=== PATIENT | female | born 1995 | race Caucasian/White ===

== ENCOUNTER 2019-03-27 17:26 | Inpatient (IN) | payer SELFPAY ==
[2019-03-27] MEDS ORDERED: LACTATED RINGERS 500 ML IV ONE (18:44)
[2019-03-27] MEDS ORDERED: LACTATED RINGERS 1,000 ML IV ONE (19:22)
[2019-03-27] MEDS ORDERED: REGLAN IV SCH (19:59)
[2019-03-27] MEDS ORDERED: PEPCID IV SCH (19:59)
[2019-03-27] MEDS ORDERED: BICITRA PO SCH (19:59)
[2019-03-27] MEDS ORDERED: ANCEF/STERILE WATER 2 GM/20 ML 2 GM/20 ML SYRINGE IV NR (20:00)
[2019-03-27] MEDS ORDERED: PITOCin/NS 20 UNIT/1000ML DRIP 20 UNITS/1,000 ML BAG IV SCH ×2 (20:00→23:00)
[2019-03-27] MEDS ORDERED: LACTATED RINGERS 1,000 ML IV SCH (20:00)
[2019-03-27 20:46] LABS: Eosinophils % (Auto) 0.6 % (0.0-4.3); Monocytes # (Auto) 0.5 K/mm3 (0.0-0.8); Monocytes % (Auto) 6.2 % (0.0-7.3)
[2019-03-27 20:48] LABS: Hematocrit 30.8 % (30.3-42.9); Hemoglobin 9.7 gm/dl (10.1-14.3); Mean Corpuscular Volume 63 fl (79-97); Red Blood Count 4.91 M/mm3 (3.65-5.03)
[2019-03-27 20:49] LABS: Basophils % (Auto) 0.5 % (0.0-1.8); Lymphocytes # (Auto) 1.9 K/mm3 (1.2-5.4); Lymphocytes % (Auto) 24.6 % (13.4-35.0); Mean Corpuscular HGB Conc 32 % (30-34); Platelet Count 283 K/mm3 (140-440); Red Cell Distribution Width 18.3 % (13.2-15.2)
[2019-03-27] MEDS ORDERED: ZOFRAN ONE (21:25)
[2019-03-27] MEDS ORDERED: SUBLIMAZE ONE (21:25)
--- NOTE | 2019-03-27 21:26 | History and Physical Report ---
History of Present Illness Date of examination: 03/27/19 Chief complaint: Nonreactive NST in the office History of present illness: Patient is a 23-year-old AF EDC 04/16/2019; EGA 37-1/7 weeks, sent from the office due to a nonreactive NST in the office. NST also nonreactive in the hosp ital with late decelerations. BPP 01/23 She received late care at [facility] [employer] and course has been unremarkable except for anemia. records are available and GBS is negative Past History Past Medical History: no pertinent history Past Surgical History: no surgical history Family/Genetic History: none Social history: no significant social history, - Obstetrical History Expected Date of Delivery: 04/16/19 Actual Gestation: 37 Week(s) 1 Day(s) : 2 Medications and Allergies Allergies Allergy/AdvReac Type Severity Reaction Status Date / Time No Known Allergies Allergy Verified 10/18/18 20:32 Home Medications Medication Instructions Recorded Confirmed Last Taken Type Ferrous Sulfate [Feosol 325 MG tab] 325 mg PO BID #60 tablet 04/24/15 11/09/15 Unknown Rx Pnv,Calcium 72/Iron/Folic Acid 1 each PO DAILY #30 tablet 04/24/15 11/09/15 Unknown Rx [ Plus Tablet] Ibuprofen [Motrin 800 MG tab] 800 mg PO Q8HR PRN #30 tablet 11/09/15 Unknown Rx oxyCODONE /ACETAMINOPHEN [Percocet 2 tab PO Q6HR PRN #30 tablet 11/09/15 Unknown Rx 5/325] Active Meds: Active Medications Citric Acid/Sodium Citrate (Bicitra) 30 ml PO ONCE KRISSY Stop: 03/28/19 19:58 Famotidine (Pepcid) 20 mg IV ONCE KRISSY Stop: 03/28/19 19:58 Oxytocin/Sodium Chloride (Pitocin/Ns 20 Unit/1000ml Drip) 20 units in 1,000 mls @ 0 mls/hr IV TITR KRISSY Lactated Ringer's (Lactated Ringers) 1,000 mls @ 2,250 mls/hr IV PREOP KRISSY Stop: 03/28/19 20:27 Cefazolin Sodium (Ancef/Sterile Water 2 Gm/20 Ml) 2 gm in 20 mls @ 80 mls/hr IV PREOP NR; Protocol Stop: 03/28/19 19:59 Metoclopramide HCl (Reglan) 10 mg IV ONCE KRISSY Stop: 03/28/19 19:58 Review of Systems All systems: negative - Vital Signs Vital signs: Vital Signs Temp Pulse Resp BP Pulse Ox 97.8 F 82 20 108/70 97 03/27/19 17:48 03/27/19 17:48 03/27/19 17:48 03/27/19 17:48 03/27/19 17:48 Temp Pulse Resp BP Pulse Ox 97.8 F 88 20 108/70 100 03/27/19 17:48 03/27/19 20:14 03/27/19 17:48 03/27/19 17:48 03/27/19 20:14 - Physical Exam Breasts: Positive: deferred Cardiovascular: Regular rate Abdomen: Positive: normal appearance, soft Genitourinary (Female): Positive: normal external genitalia Uterus: Positive: enlarged Extremities: Positive: normal - Obstetrical FHR: category 2 Uterine Contraction Monitor Mode: External Uterine Contraction Pattern: Irregular Results Result Diagrams: 03/27/19 19:30 Abnormal lab results 03/27/19 Range/Units 19:30 Hgb 9.7 L (10.1-14.3) gm/dl MCV 63 L (79-97) fl MCH 20 L (28-32) pg RDW 18.3 H (13.2-15.2) % All other labs normal. Ultrasound: report reviewed (BPP 01/23) Assessment and Plan - Patient Problems (1) 37 weeks gestation of Onset Date: 03/27/19 Current Visit: Yes Status: Acute Plan to address problem: A: IUP @ 37 1/7 weeks Non-reassuring monitoring with late decelerations P: Will admit and proceed with C Section delivery DESTINY (2) Non-reassuring heart rate with late deceleration Onset Date: 03/27/19 Current Visit: Yes Status: Acute
[2019-03-27] MEDS ORDERED: NEO SYNEPHRINE/NS Syringe(OR USE) IV ONE (21:27)
[2019-03-27] MEDS ORDERED: PHENERGAN PO PRN (21:32)
[2019-03-27] MEDS ORDERED: PHENERGAN PR PRN (21:32)
[2019-03-27] MEDS ORDERED: ZOFRAN IV PRN (21:32)
[2019-03-27] MEDS ORDERED: BENADRYL IV PRN (21:32)
[2019-03-27] MEDS ORDERED: DILAUDID IV PRN (21:32)
[2019-03-27] MEDS ORDERED: NARCAN 0.4 MG/1 ML IV PRN ×2 (21:32→22:44)
--- NOTE | 2019-03-27 21:34 | Anesthesia Consultation ---
Anesthesia Consult and Med Hx - Airway Anesthetic Teeth Evaluation: Good ROM Head & Neck: Adequate Mental/Hyoid Distance: Adequate Mallampati Class: Class I Intubation Access Assessment: Good - Pulmonary Exam CTA: Yes - Cardiac Exam Cardiac Exam: RRR - Pre-Operative Health Status ASA Pre-Surgery Classification: ASA2 Proposed Anesthetic Plan: Spinal - Pulmonary Hx Asthma: No COPD: No Hx Pneumonia: No - Cardiovascular System Hx Hypertension: No - Central Nervous System Hx Seizures: No Hx Psychiatric Problems: No - Endocrine Hx Renal Disease: No Hx End Stage Renal Disease: No Hx Hypothyroidism: No Hx Hyperthyroidism: No - Hematic Hx Anemia: No Hx Sickle Cell Disease: No - Other Systems Hx Alcohol Use: No
--- NOTE | 2019-03-27 21:34 | Anesthesia Day of Surgery ---
Anesthesia Day of Surgery - Day of Surgery Patient Examined: Yes Patient H&P Reviewed: Yes Patient is NPO: Yes Beta Blockers: No Cardiac Clearance: No Pulmonary Clearance: No Spenser's Test: N/A
[2019-03-27] MEDS ORDERED: SODIUM CHLORIDE FLUSH SYRINGE 10 ML IV PRN ×2 (22:00→23:00)
--- NOTE | 2019-03-27 22:04 | Ultrasound Report ---
PROCEDURE: Ultrasound biophysical profile without nonstress test. TECHNIQUE: Sonographic evaluation for breathing, movement, tone, and amniotic flui d volume was performed. HISTORY: decreased fm COMPARISONS: None. FINDINGS: FETUS Amniotic fluid volume 0. breathin. movement: 0. tone: 0. Score: 2 of 8. IMPRESSION: Very low biophysical profile. This document is electronically signed by Elias Nina MD., March 27 2019 10:02:46 PM ET
--- NOTE | 2019-03-27 22:08 | Ultrasound Report ---
PROCEDURE: Limited obstetrical ultrasound. TECHNIQUE: Real-time limited sonographic examination was performed for evaluation of each fetus with image documentation (1 or more fetuses). HISTORY: decreased fm COMPARISONS: Obstetrical ultrasound 10/18/2018. Dictation not available. FINDINGS: There is a single viable fetus in cephalic presentation. Cardiac activity is documented at 145 bpm. T he amniotic fluid volume appears decreased. The amniotic fluid index measures 3.6 cm. IMPRESSION: Oligohydramnios. Viable fetus in cephalic presentation. This document is electronically signed by Elias Nina MD., March 27 2019 10:07:04 PM ET
[2019-03-27] MEDS ORDERED: LACTATED RINGERS 1,000 ML ONE (22:10)
[2019-03-27] MEDS ORDERED: TORADOL ONE (22:15)
[2019-03-27] MEDS ORDERED: TUCKS PAD TP PRN (22:44)
[2019-03-27] MEDS ORDERED: SENOKOT PO PRN (22:44)
[2019-03-27] MEDS ORDERED: TORADOL IV PRN (22:44)
[2019-03-27] MEDS ORDERED: MILK OF MAGNESIA PO PRN (22:44)
[2019-03-27] MEDS ORDERED: TYLENOL PO PRN (22:44)
[2019-03-27] MEDS ORDERED: NORCO 5/325 PO PRN (22:44)
[2019-03-27] MEDS ORDERED: LANSINOH TP PRN (22:44)
--- NOTE | 2019-03-27 22:44 | Operative Report ---
Operative Report Operative Report: Date of procedure: 03/27/2019 Pre-operative diagnosis: 1. Intrauterine at 37-1/7 weeks 2. Non-re assuring surveillance Post-operative diagnosis: Same Procedure name(s): Primary low transverse section Surgeon: Richard Lee MD Grocery Associate: None Anesthesia: Spinal anesthesia by Sheldon Lee CRNA EBL: 350 mL Findings: A 2703 g male infant Apgars 7 at 1 minute 8 at 5 minutes. Tight nuchal cord 1. Normal uterus. Normal tubes and ovaries bilaterally. Procedure: After the patient was prepped and draped in usual sterile fashion, and after satisfactory level of epidural anesthesia was obtained, the skin knife was used to make a transverse skin incision. The incision was excised down to layer of the fascia, which was nicked in the midline and extended laterally using the Bovie cautery. The rectus muscles were dissected off the rectus fascia both superiorly and inferiorly. The rectus bellies in the midline, and the peritoneum was entered under direct visualization. The peritoneal incision was extended superiorly and inferiorly. A bladder flap was created and the bladder blade was then placed. The uterus was scored in a curvilinear linear fashion, entered in the midline revealing clear amniotic fluid. The infant's head was delivered onto the surgical field, and the oropharynx and nasopharynx were bulb suctioned. The rest of the infant's body was delivered, cord was doubly clamped and cut and the was handed to the waiting respiratory team. The placenta was manually removed from the uterus, and the uterus removed from its normal anatomical position. After gentle uterine lavage, the incision was inspected and found to be without extensions. It was then closed in 2 layers using 0 Vicryl suture in a running interlocking fashion, the second layer imbricating the first. After good hemostasis was achieved, copious amounts or irrigation was performed, and the gutters were suctioned free of blood and blood clots. Tisseel sealant was sprayed across the uterine incision. The uterus was then returned to its normal anatomical posi tion, and after excellent hemostasis assured, the peritoneum was re-approximated using 3-0 Vicryl suture in a running interlocking fashion, and then the rectus muscles were re-approximated using 3-0 Vicryl suture in a [id number] configuration. The fascia was then re-approximated using 0 Vicryl suture in running interlocking fashion. The subcutaneous layer was made hemostatic using Bovie cautery, the Tisseel sealant was sprayed across the fascial incision and the skin edges re-approximated using 4-0 Vicryl suture in a sub-cuticular fashion. Patient tolerated the procedure well was transported to recovery in stable condition.
[2019-03-27] MEDS ORDERED: D5LR 1,000 ML IV SCH (23:00)
--- NOTE | 2019-03-27 23:08 | Post Anesthesia Evaluation ---
- Post Anesthesia Evaluation Patient Participated: Yes Airway Patent: Yes Stable Respiratory Function: Yes Nausea/Vomiting: No Temp > 96.8F: Yes Pain Manageable: Yes Adequeate Hydration: Yes Anesthesia Complications: No Block Receding Appropriately: Yes Patient on Ventilator: No
[2019-03-28] MEDS ORDERED: PITOCin/NS 20 UNIT/1000ML DRIP 20,000 MILLIUNITS/1,000 ML BAG IV ONE (01:33)
[2019-03-28] MEDS: PERCOCET 5/325 PO PRN ×4 (01:41→20:06)
[2019-03-28] MEDS ORDERED: METHERGINE IM ONE ×2 (02:02→02:03)
[2019-03-28] MEDS: ANCEF/NS 1 GM/50 ML 1 GM/50 ML BAG IV SCH ×2 (03:32→12:33)
[2019-03-28] MEDS: METHERGINE PO SCH ×3 (06:26→22:36)
[2019-03-28] MEDS: IBUPROFEN PO PRN ×3 (07:44→20:10)
[2019-03-28] MEDS ORDERED: FEOSOL PO SCH (10:00)
[2019-03-28] MEDS: PRENATAL VITAMIN PO SCH (10:09)
[2019-03-28 10:38] LABS: Hematocrit 20.3 % (30.3-42.9); Hemoglobin 6.3 gm/dl (10.1-14.3)
[2019-03-28] MEDS: MYLICON PO PRN ×2 (14:53→20:06)
--- NOTE | 2019-03-28 18:22 | Progress Note ---
Assessment and Plan A: POD#1 s/p Primary c/s Asymptomatic Anemia Pain well controlled Ambulating, eating and voiding without difficulty Stable P: Follow Routine Orders FeSO4 BID InFed 100mg IM x1 dose Abdominal Binder Repeat H/H in am Anticiapte discharge home in 24-48 hours Subjective - Subjective Date of service: 03/28/19 Principal diagnosis: POD#1 s/p Primary section Patient reports: appetite normal, voiding normally, pain well controlled, flatus, ambulating normally, no bowel movement Objective - Vital Signs Latest vital signs: Vital Signs Temp Pulse Resp BP Pulse Ox 03/28/19 16:04 97.6 F 82 18 102/67 99 03/28/19 12:36 98.1 F 102 H 18 108/64 100 03/28/19 08:09 98.2 F 76 18 128/77 99 03/28/19 04:30 99.1 F 79 18 121/71 97 03/28/19 03:56 18 03/28/19 02:41 18 03/28/19 01:41 18 03/27/19 20:14 88 100 03/27/19 20:09 86 100 03/27/19 20:04 94 H 100 03/27/19 19:59 95 H 100 03/27/19 19:54 96 H 100 03/27/19 19:49 93 H 100 03/27/19 19:44 78 100 03/27/19 19:39 73 100 03/27/19 19:34 76 100 03/27/19 19:29 70 100 03/27/19 19:24 70 100 03/27/19 19:19 77 99 03/27/19 19:14 73 99 03/27/19 19:00 87 100 03/27/19 18:56 78 89 03/27/19 18:55 74 99 03/27/19 18:51 83 93 03/27/19 18:49 83 98 03/27/19 18:45 79 91 03/27/19 18:44 80 95 03/27/19 18:39 80 99 03/27/19 18:34 75 100 03/27/19 18:24 80 93 03/27/19 18:23 80 96 Intake and Output 03/28/19 03/28/19 03/28/19 07:59 15:59 23:59 Intake Total 290 Output Total 900 500 900 Balance -610 -500 -900 Intake: IV 50 ANCEF/NS 1 GM/50 ML 1 gm 50 In 50 ml @ 100 mls/hr IV Q8H [facility] Rx#:[id number] Intake, Free Water 240 Output: Urine 900 500 900 Indwelling Catheter 900 Void 500 900 Other: Total, Output Amount 900 500 900 # Voids Void 1 1 Estimated Blood Loss 350 - Exam Breasts: Present: normal Cardiovascular: Present: Regular rate, Normal S1, Normal S2, No murmurs Lungs: Present: Clear to auscultation, Normal air movement Abdomen: Present: normal appearance, soft, tenderness (as expected post op), normal bowel sounds. Absent: distention Vulva: both: normal Uterus: Present: firm, fundal height at umbilicus Extremities: Present: normal Deep Tendon Reflex Grade: Normal +2 Incision: Present: normal, dry, intact, dressed (Pressure dressing CDI) - Labs Labs: Abnormal lab results 03/27/19 03/28/19 Range/Units 19:30 10:10 Hgb 9.7 L 6.3 L D (10.1-14.3) gm/dl Hct 20.3 L D (30.3-42.9) % MCV 63 L (79-97) fl MCH 20 L (28-32) pg RDW 18.3 H (13.2-15.2) %
[2019-03-28] MEDS ORDERED: INFED IM ONE (18:24)
[2019-03-28] MEDS ORDERED: M-M-R II VACCINE SUB-Q ONE (22:46)
[2019-03-29] MEDS: IBUPROFEN PO PRN ×3 (03:37→23:41)
[2019-03-29] MEDS: MYLICON PO PRN (03:37)
[2019-03-29] MEDS ORDERED: BOOSTRIX IM ONE (06:00)
[2019-03-29 06:13] LABS: Hematocrit 21.3 % (30.3-42.9); Hemoglobin 6.4 gm/dl (10.1-14.3)
[2019-03-29] MEDS: PERCOCET 5/325 PO PRN (07:09)
--- NOTE | 2019-03-29 09:50 | Progress Note ---
Assessment and Plan - Patient Problems (1) Status post delivery Current Visit: Yes Status: Acute Plan to address problem: Continue routine PP orders Anticipate d/c home in 24-48 hrs if H/H is stable and remains >6 (2) Anemia Current Visit: No Status: Acute Qualifiers: Anemia type: other cause Other causes of anemia: acute posthemorrhagic Qualified Code(s): D62 - Acute posthemorrhagic anemia Plan to address problem: Asymptomatic Continue daily po iron supplementation H/H in am Continue iron supplementation after d/c home (Rx on chart) Subjective - Subjective Date of service: 03/29/19 Principal diagnosis: POD#2 s/p Primary section Interval history: See admission H & P, operative report and PP progress notes Patient reports: appetite normal, voiding normally, pain well controlled (with medications), flatus, ambulating normally, no bowel movement : in NICU, other () Objective - Vital Signs Latest vital signs: Vital Signs Temp Pulse Resp BP BP Pulse Ox 03/29/19 07:59 97.2 F L 92 H 16 114/52 98 03/29/19 07:09 16 03/29/19 03:37 16 03/29/19 00:35 98.6 F 18 108/70 03/28/19 20:10 16 03/28/19 16:04 97.6 F 82 18 102/67 99 03/28/19 12:36 98.1 F 102 H 18 108/64 100 Intake and Output 03/28/19 03/29/19 03/29/19 23:59 07:59 15:59 Intake Total 500 1080 Output Total 900 Balance -400 1080 Intake: Oral 200 480 Intake, Free Water 300 600 Output: Urine 900 Void 900 Other: Total, Intake Amount 200 480 Total, Output Amount 900 # Voids Void 1 1 - Exam Breasts: Present: deferred Cardiovascular: Present: Regular rate Lungs: Present: Normal air movement Abdomen: Present: tenderness, normal bowel sounds Uterus: Present: fundal height below umbilicus (U-1) Extremities: Present: normal Deep Tendon Reflex Grade: Normal +2 Incision: Present: dressed (no shadow drainage or bleeding noted) - Labs Labs: Abnormal lab results 03/28/19 03/29/19 Range/Units 10:10 05:36 Hgb 6.3 L D 6.4 L (10.1-14.3) gm/dl Hct 20.3 L D 21.3 L (30.3-42.9) %
[2019-03-29] MEDS: PRENATAL VITAMIN PO SCH (10:49)
[2019-03-29] MEDS: FEOSOL PO SCH ×3 (10:49→21:20)
[2019-03-29] MEDS ORDERED: FEOSOL PO SCH (14:00)
[2019-03-30] MEDS: PERCOCET 5/325 PO PRN (01:23)
[2019-03-30 06:11] LABS: Hematocrit 18.1 % (30.3-42.9); Hemoglobin 5.5 gm/dl (10.1-14.3)
[2019-03-30] MEDS ORDERED: NACL 0.9% 500 ML 500 ML IV ONE (06:23)
[2019-03-30] MEDS ORDERED: BENADRYL PO ONE (07:02)
[2019-03-30] MEDS ORDERED: TYLENOL PO ONE (07:05)
--- NOTE | 2019-03-30 09:38 | Progress Note ---
Assessment and Plan A: day 3 S/P primary section. Severe anemia secondary to blood loss. Patient declined blood transfusion. P: Discussed with patient risks of severe anemia and of not taking blood transfusion; patient states she understands the risks fully and does not want to receive blood transfusion. notified of patient's refusal of blood. Advised pt. she must take iron supplment TID even when she goes home and she must increase her intake of iron rich foods (list of such foods provided to pt.). Warning signs discussed with pt. Subjective - Subjective Date of service: 03/30/19 Principal diagnosis: POD#3 s/p Primary section Interval history: /postop day 3 S/P primary section. Patient has severe anemia; blood transfusion has been ordered by . Patient has declined blood transfusion. [employer]st had long conversation with patient re: risks of severe anemia; patient states she understands the risks of not taking the blood. Patient refuses blood transfusion. Patient states she is feeling well. She reports scant amount of lochia and no clots. Voiding without difficulty; ambulating well. Tolerating a regular diet without nausea or vomiting. Patient denies headache, chest pain, cough, shortness of breath, dizziness, abdominal pain, leg pain, fatigue, or any other symptoms. Patient reports: appetite normal, voiding normally, pain well controlled, flatus, ambulating normally, no dizzy ambulation, no nauseated [place]: doing well, in NICU Objective - Vital Signs Latest vital signs: Vital Signs Temp Pulse Resp BP Pulse Ox 03/30/19 08:11 98.4 F 86 20 109/60 100 03/30/19 00:37 98.2 F 107 H 18 116/54 99 03/29/19 17:26 99.7 F H 108 H 20 108/68 97 03/29/19 10:49 16 Intake and Output 03/29/19 03/30/19 03/30/19 23:59 07:59 15:59 Intake Total 240 240 Balance 240 240 Intake: Oral 240 240 Other: Total, Intake Amount 240 240 # Voids Void 1 1 # Bowel Movements 1 - Exam Cardiovascular: Present: Regular rate, Normal S1, Normal S2, No murmurs Lungs: Present: Clear to auscultation Abdomen: Present: normal appearance, soft, normal bowel sounds. Absent: distention, tenderness, guarding, rigidity Uterus: Present: normal, firm, fundal height below umbilicus. Absent: bogginess, tenderness Extremities: Present: normal. Absent: tenderness, edema Incision: Present: normal, dry, intact - Labs Labs: Abnormal lab results 03/27/19 03/30/19 Range/Units 19:30 05:52 Hgb 5.5 L* (10.1-14.3) gm/dl Hct 18.1 L* (30.3-42.9) % Crossmatch See Detail
--- NOTE | 2019-03-30 10:02 | Event Note ---
Date: 03/30/19 Patient refused the 3 units of PRBCs ordered by Dr. Raymond. Patient is able to stand up and walk around without difficulty. She denies dizziness or fatigue. She denies chest pain or shortness of breath. Spoke with Dr. Raymond re: patient's refusal of blood transfusion. Dr. Raymond states that patient must remain in the hospital for the next week and to limit blood draws. Patient has been informed of risks of refusing blood and patient states she fully understands and accepts these risks. She was informed that she will not be discharged yet.
[2019-03-30] MEDS: FEOSOL PO SCH ×3 (10:36→22:35)
[2019-03-30] MEDS: IBUPROFEN PO PRN ×2 (10:37→19:02)
[2019-03-30] MEDS: PRENATAL VITAMIN PO SCH (10:37)
--- NOTE | 2019-03-30 18:54 | Event Note ---
Date: 03/30/19 SCDs ordered as patient is to rest and stay in her room (not ambulate in halls); patient to rest per MD order. Nurses and patient notified.
[2019-03-31] MEDS: FEOSOL PO SCH ×3 (09:08→21:00)
[2019-03-31] MEDS: PRENATAL VITAMIN PO SCH (09:08)
[2019-03-31] MEDS: IBUPROFEN PO PRN (09:08)
--- NOTE | 2019-03-31 11:25 | Progress Note ---
Assessment and Plan A: /postop day 4 S/P primary section. Anemia secondary to and blood loss. Patient refused blood transfusion. P: Continue rest and SCDs. Continue iron supplementation TID. Iron rich diet. Subjective - Subjective Date of service: 03/31/19 Principal diagnosis: POD#4 s/p Primary section; severe anemia Interval history: /postop day 4 S/P primary section. Patient has severe anemia; she has refused blood transfusion that was ordered by MD. Patient states she is feeling well. She denies dizziness, fatigue, chest pain, shortness of breath, cough, leg pain, abdominal pain, nausea or vomiting, or heavy vaginal bleeding. She reports scant lochia. Baby is in NICU and patient is bottlefeeding and pumping breast milk. Patient has been resting in bed; SCD in place on both LE. She has been advised to rest due to the severe anemia. She is receiving iron supplementation TID. Patient is voiding without difficulty and tolerating a regular diet. Patient states she has increased her dietary intake of iron rich foods. Patient reports: appetite normal, voiding normally, pain well controlled, flatus, no dizzy ambulation, no nauseated [place]: doing well, in NICU Objective - Vital Signs Latest vital signs: Vital Signs Temp Pulse Resp BP Pulse Ox 03/31/19 08:01 98.2 F 89 20 110/71 99 03/31/19 00:21 98.4 F 105 H 18 106/66 98 03/30/19 16:11 97.4 F L 88 20 101/65 99 Intake and Output 03/30/19 03/31/19 03/31/19 23:59 07:59 15:59 Intake Total 480 120 360 Balance 480 120 360 Intake: Oral 480 120 360 Other: Total, Intake Amount 240 120 360 # Voids Void 1 1 1 - Exam Cardiovascular: Present: Regular rate, Normal S1, Normal S2 Lungs: Present: Clear to auscultation Abdomen: Present: normal appearance, soft, normal bowel sounds. Absent: distention, tenderness, guarding, rigidity Uterus: Present: normal, firm, fundal height below umbilicus. Absent: bogginess, tenderness Extremities: Present: normal. Absent: tenderness, edema Incision: Present: normal, dry, intact
[2019-03-31] MEDS ORDERED: NACL 0.9% 500 ML 500 ML IV ONE (17:11)
[2019-03-31] MEDS ORDERED: NACL 0.9% 500 ML 500 ML IV NR (18:00)
--- NOTE | 2019-03-31 18:27 | Event Note ---
Date: 03/31/19 Nurse informed me that patient has decided to take blood transfusion after all because her baby has been transferred to another hospital and she wants to be discharged as soon as possible.
[2019-03-31] MEDS ORDERED: BANOPHEN PO ONE (20:01)
[2019-03-31] MEDS ORDERED: TYLENOL PO ONE (20:04)
[2019-04-01] MEDS: PRENATAL VITAMIN PO SCH (10:18)
[2019-04-01] MEDS: IBUPROFEN PO PRN (10:19)
[2019-04-01] MEDS: FEOSOL PO SCH ×2 (10:19→16:24)
--- NOTE | 2019-04-01 10:20 | Progress Note ---
Assessment and Plan - Patient Problems (1) Status post delivery Current Visit: Yes Status: Acute Plan to address problem: Continue routine PP orders Post transfusion H/H around 1100 Will make decision about d/c after results of H/H received and consult with physician (2) Anemia Current Visit: No Status: Acute Qualifiers: Anemia type: other cause Other causes of anemia: acute posthemorrhagic Qualified Code(s): D62 - Acute posthemorrhagic anemia Plan to address problem: Asymptomatic H/H around 1100 Continue iron supplementation after d/c home (Rx on chart) Subjective - Subjective Date of service: 04/01/19 Principal diagnosis: POD#5 s/p Primary section; severe anemia Interval history: See admission H & P, operative report and PP progress notes Patient reports: appetite normal, voiding normally, pain well controlled, flatus, bowel movement, ambulating normally : transported (to higher level care facility) Objective - Vital Signs Latest vital signs: Vital Signs Temp Pulse Resp BP BP Pulse Ox 04/01/19 09:00 98.6 F 71 18 122/56 04/01/19 07:43 98.4 F 73 14 115/64 100 04/01/19 07:17 84 18 128/74 98 04/01/19 06:47 98.7 F 69 18 129/82 98 04/01/19 06:25 69 16 123/80 96 04/01/19 06:05 96 H 16 123/78 98 04/01/19 05:50 69 16 123/81 98 04/01/19 05:35 98.4 F 61 16 128/71 100 04/01/19 05:16 72 18 135/80 97 04/01/19 04:35 70 18 120/72 98 04/01/19 04:05 92 H 16 120/80 99 04/01/19 03:35 72 18 109/66 99 04/01/19 03:06 85 16 111/76 99 04/01/19 02:50 86 16 114/79 98 04/01/19 02:25 98.4 F 83 16 114/79 98 04/01/19 01:56 87 18 116/68 99 04/01/19 01:24 84 18 116/71 99 04/01/19 00:51 83 20 119/74 04/01/19 00:24 84 18 97 04/01/19 00:23 79 18 106/72 97 04/01/19 00:21 90 18 106/74 97 04/01/19 00:06 98.8 F 106 H 18 112/68 98 03/31/19 23:25 98.8 F 84 18 104/78 99 03/31/19 15:53 98.5 F 79 20 111/70 97 Intake and Output 03/31/19 04/01/19 04/01/19 23:59 07:59 15:59 Intake Total 280 980 240 Balance 280 980 240 Intake: Oral 280 240 Intake, Free Water 480 Blood Product 0 500 Leukoreduced Red Blood 0 Cells Unit [id number] Leukoreduced Red Blood 0 250 Cells Unit [id number] Leukoreduced Red Blood 250 Cells Unit [id number] Other: Total, Intake Amount 280 240 # Voids Void 1 1 1 - Exam Breasts: Present: normal Cardiovascular: Present: Regular rate Lungs: Present: Normal air movement Abdomen: Present: soft, normal bowel sounds Uterus: Present: firm, fundal height below umbilicus (U-3) Extremities: Present: normal Deep Tendon Reflex Grade: Normal +2 Incision: Present: dry, intact Comments: Skin color has improved greatly - Labs Labs: Abnormal lab results 03/27/19 03/31/19 Range/Units 19:30 17:50 Crossmatch See Detail See Detail
[2019-04-01 11:55] LABS: Hematocrit 34.2 % (30.3-42.9); Hemoglobin 10.7 gm/dl (10.1-14.3)
--- NOTE | 2019-04-01 13:02 | Discharge Summary ---
Providers - Providers Date of Admission: 03/27/19 23:07 Attending physician: KHUSHBU ARCHULETA MD Primary care physician: KHUSHBU ARCHULETA MD Hospitalization Reason for admission: other ( distress) Delivery: Procedure: section Other procedures: other (Blood transfusion) complications: other (symptomatic anemia.) Discharge diagnosis: IUP at term delivered [place] baby: male Hospital course: Patient is a 23-year-old AF EDC 04/16/2019 who was admitted at 37-1/7 weeks for nonreactive NST. On admission, tracing showed repetitive late decelerations. She underwent emergency C/section with delivery of a live 2703 gm male with Apgars 7 at 1 minute 8 at 5 minutes. Tight nuchal cord 1 was found. Post operatively, the patient developed symptomatic anemia with H/H of 5.5/18. She had refused blood transfusion several times for the past 2 days. Last night, she agreed to have the blood blood transfusion. She was given 3 units of PRBCs. Post transfusion H/H is 10.7/34.2. She denies any dizziness, chest pain or palpitation. Condition at discharge: Stable Disposition: DC-01 TO HOME OR SELFCARE Plan - Discharge Medications Prescriptions: Ferrous Sulfate [Feosol 325 MG tab] 325 mg PO BID #60 tablet Ferrous Sulfate [Iron 325 MG] 325 mg PO TID 30 Days #90 tablet Ibuprofen [Motrin] 800 mg PO Q8HR PRN #30 tablet PRN Reason: Pain, Mild (1-3) HYDROcodone/APAP 5-325 [[place] 5/325] 1 each PO Q6HR PRN #30 tablet PRN Reason: Pain Vit-Fe Fumar-FA [ Vitamin] 1 tab PO QDAY #30 tablet - Provider Discharge Summary Activity: no sex for 6 weeks, no heavy lifting 4 weeks, no strenuous exercise Diet: routine Additional instructions: [] Smoking cessation referral if applicable(refer to patient education folder for contact #) [] Refer to [facility] Booklet Call your doctor immediately for: * Fever > 100.5 * Heavy vaginal bleeding ( >1 pad per hour) * Severe persistent headache * Shortness of breath * Reddened, hot, painful area to leg or breast * Drainage or odor from incision. * Keep incision clean and dry at all times and follow doctor's instructions regarding bathing/showering - Follow up plan Follow up: KHUSHBU ARCHULETA MD [Primary Care Provider] - 7 Days
[2019-04-01 17:06] VITALS: BP 102/61
== END 2019-04-01 17:45 | disposition home or self-care (01) | DRG 787 ==
LOC: TRG 17:26 → APU 23:07 → OB 03-28 01:20
PROVIDERS: ADMIT Obstetrics & Gynecology; ATTEND Obstetrics & Gynecology
PROC: 10D00Z1 Extraction of Products of Conception, Low, Open Approach (ICD-10-PCS; principal; 2019-03-27)
PROC: 3E0234Z Introduction of Serum, Toxoid and Vaccine into Muscle, Percutaneous Approach (ICD-10-PCS; 2019-03-28)
PROC: 30233N1 Transfusion of Nonautologous Red Blood Cells into Peripheral Vein, Percutaneous Approach (ICD-10-PCS; 2019-04-01)
DX: O76 Abnormality in fetal heart rate and rhythm complicating labor and delivery (principal); D62 Acute posthemorrhagic anemia; O69.1XX0 Labor and delivery complicated by cord around neck, with compression, not applicable or unspecified; O90.81 Anemia of the puerperium; Z3A.37 37 weeks gestation of pregnancy; Z37.0 Single live birth; Z23 Encounter for immunization
CPT/HCPCS: 36415; 59025; 76815; 76819; 85014; 85018; 85025; 86592; 86850; 86900; 86901; 86920; G0378; A6250; J0690; J1750; J1885; J2210; J2370; J2405; J2590; J2765; J3010; J7040; J7120; J7121; P9016; Q0163